=== PATIENT | male | born 1985 | race Caucasian/White ===

== ENCOUNTER 2016-06-18 08:23 | Emergency (ER) | payer SELFPAY ==
[~2016-06-18] VITALS: Ht 182.9 cm; Wt 133.5 kg
[~2016-06-18 08:23] MED LIST: ANUSOL HC,ANUCO25 MG PR; AURALGAN14.8 ML RIGHT EAR; CIPRO HC OTIC S10 ML RIGHT EAR; CITRATE OF MAG296 ML PO; CLEOCIN300 MG PO; COLACE100 MG PO; DICLOFENAC SODI75 MG PO; FLEXERIL10 MG PO; KRISTALOSE20 GM PO; LIDODERM 5% P1 PATCH TD; MEDROL DOSEPAK4 MG PO; MIRALAX255 GM PO; MOBIC7.5 MG PO; MOTRIN800 MG PO; NAPROSYN500 MG PO; NAPROXEN500 MG PO; NO HOME MEDS; NORCO 5/3251 TABLET PO; PEN-VEE K,VEET500 MG PO; PERCOCET 5/31 TABLET PO; STOOL SOFTENER250 MG PO; TRAMADOL HCL50 MG PO; TYLENOL EXTRA500 MG PO; ULTRACET1 TABLET PO; ULTRAM50 MG PO; VALIUM5 MG PO; VICODIN 5-3001 EACH PO; VICODIN,LORT1 TABLET PO
[2016-06-18] MEDS ORDERED: LORTAB 5-325 M1 EACH PO (09:58)
[2016-06-18] MEDS ORDERED: PREDNISONE10 MG PO (09:58)
[2016-06-18] MEDS ORDERED: BACLOFEN10 MG PO (09:58)
[2016-06-18 10:22] VITALS: BP 118/76
== END 2016-06-18 10:24 | disposition home or self-care (01) ==
LOC: EME 08:23
DX: M54.31 Sciatica, right side (principal); M54.5 Low back pain; G89.29 Other chronic pain; M53.3 Sacrococcygeal disorders, not elsewhere classified; S39.012A Strain of muscle, fascia and tendon of lower back, initial encounter; Z71.6 Tobacco abuse counseling
CPT/HCPCS: 99281; 99284; J7512

== ENCOUNTER 2016-08-06 08:12 | Emergency (ER) | payer SELFPAY ==
[~2016-08-06] VITALS: Ht 182.9 cm; Wt 134.0 kg
[~2016-08-06 08:12] MED LIST changes: +BACLOFEN10 MG PO; +LORTAB 5-325 M1 EACH PO; +PREDNISONE10 MG PO
[2016-08-06] MEDS ORDERED: PEN-VEE K,VEET500 MG PO (09:03)
[2016-08-06] MEDS ORDERED: NORCO 5/3251 TABLET PO (09:03)
[2016-08-06 09:11] VITALS: BP 123/80
== END 2016-08-06 09:12 | disposition home or self-care (01) ==
LOC: EME 08:12
DX: K02.9 Dental caries, unspecified (principal); F17.210 Nicotine dependence, cigarettes, uncomplicated
CPT/HCPCS: 99281; 99283; S0020

== ENCOUNTER 2016-08-13 09:26 | Emergency (ER) | payer SELFPAY ==
[~2016-08-13] VITALS: Ht 182.9 cm; Wt 134.9 kg
[2016-08-13] MEDS ORDERED: PEN-VEE K,VEET500 MG PO (11:16)
[2016-08-13] MEDS ORDERED: ULTRAM50 MG PO (11:16)
[2016-08-13] MEDS ORDERED: NAPROSYN500 MG PO (11:16)
[2016-08-13 11:32] VITALS: BP 108/54
== END 2016-08-13 11:35 | disposition home or self-care (01) ==
LOC: RME 09:26 → EME 09:26 → RME 11:35
DX: K02.9 Dental caries, unspecified (principal); R51 Headache; K08.89 Other specified disorders of teeth and supporting structures; F17.200 Nicotine dependence, unspecified, uncomplicated
CPT/HCPCS: 99281; 99284

== ENCOUNTER 2016-09-09 10:40 | Emergency (ER) | payer SELFPAY ==
[~2016-09-09] VITALS: Ht 182.9 cm; Wt 131.0 kg
[2016-09-09 11:27] VITALS: BP 124/60
[2016-09-09] MEDS ORDERED: PREDNISONE5 M1 PO (13:20)
[2016-09-09] MEDS ORDERED: INDOCIN50 MG PO (13:20)
[2016-09-09] MEDS ORDERED: NORCO 5/3251 TABLET PO (13:20)
[2016-09-09] MEDS ORDERED: FLEXERIL10 MG PO (13:20)
== END 2016-09-09 14:01 | disposition home or self-care (01) ==
LOC: EME 10:40 → RME 10:40
DX: M51.16 Intervertebral disc disorders with radiculopathy, lumbar region (principal); M54.5 Low back pain; F17.200 Nicotine dependence, unspecified, uncomplicated
CPT/HCPCS: 99281; 99283

== ENCOUNTER 2016-09-12 09:22 | Emergency (ER) | payer SELFPAY ==
[~2016-09-12] VITALS: Ht 182.9 cm; Wt 135.0 kg
[~2016-09-12 09:22] MED LIST changes: +INDOCIN50 MG PO; +PREDNISONE5 M1 PO
[2016-09-12] MEDS ORDERED: PEN-VEE K,VEET500 MG PO (10:53)
[2016-09-12] MEDS ORDERED: LIDOCAINE20 MG/1 M5 PO (10:53)
[2016-09-12 11:08] VITALS: BP 126/90
== END 2016-09-12 11:09 | disposition home or self-care (01) ==
LOC: EME 09:22
DX: K02.9 Dental caries, unspecified (principal); F17.210 Nicotine dependence, cigarettes, uncomplicated
CPT/HCPCS: 99281; 99283

== ENCOUNTER 2017-01-30 14:05 | Emergency (ER) | payer SELFPAY ==
[~2017-01-30] VITALS: Ht 182.9 cm; Wt 129.8 kg
[~2017-01-30 14:05] MED LIST changes: +LIDOCAINE20 MG/1 M5 PO
[2017-01-30 15:22] LABS: HEMATOCRIT 50.5 % (38.0-50.0); MCH 28.8 PG (29.0-34.0); MCHC 33.3 G/DL (30.0-36.0); MCV 86.6 FL (86-99); MEAN PLAT.VOLUME 11.5 uM^3 (9.0-12.4); PLATELET COUNT 207 K/uL (156-360); RBC DIS.WIDTH-CV 13.2 % (11.8-14.6); RBC DIS.WIDTH-SD 42.1 % (39-53); RED BLOOD COUNT 5.83 M/uL (4.00-5.50); WHITE BLOOD COUNT 12.3 K/uL (4.1-10.2)
[2017-01-30 15:32] LABS: CHLORIDE 109 mEq/L (99-109); POTASSIUM 4.1 mEq/L (3.7-5.4); SODIUM 142 mEq/L (136-147)
[2017-01-30 15:33] LABS: GLUCOSE 102 mg/dL (70-99)
[2017-01-30 15:35] LABS: ANION GAP 11 MEQ/L (2-14)
[2017-01-30 15:37] LABS: GFR ESTIMATE (CALCULATED) > 59 mL/min/
[2017-01-30 15:38] LABS: UREA NITROGEN (BUN) 13 mg/dL (9-23)
[2017-01-30 16:07] LABS: ADD MIUA? YES; BILIRUBIN NEGATIVE; BLOOD LARGE; COLOR YELLOW ((YELLOW)); GLUCOSE (STRIP) NEGATIVE; KETONES NEGATIVE; LEUKOCYTES NEGATIVE; NITRITE NEGATIVE; PROTEIN (STRIP) NEGATIVE; SPECIFIC GRAVITY 1.026 (1.000-1.030); UROBILINOGEN 0.2 MG/DL (0.2-1.0)
[2017-01-30 16:13] LABS: BACTERIA NONE SEEN /HPF; EPITHELIAL CELLS RARE /HPF; MUCUS 1+ /LPF; RED BLOOD CELLS TNTC /HPF (0-5); UCUL ADDED? YES; WHITE BLOOD CELLS 0-5 /HPF (0-5)
[2017-01-30] MEDS ORDERED: MOTRIN600 MG PO (18:48)
[2017-01-30] MEDS ORDERED: ZOFRAN4 MG PO (18:48)
[2017-01-30 19:25] VITALS: BP 129/66
== END 2017-01-30 19:26 | disposition home or self-care (01) ==
LOC: EME 14:05
DX: R10.31 Right lower quadrant pain (principal); R31.29 Other microscopic hematuria; Z87.442 Personal history of urinary calculi; F17.200 Nicotine dependence, unspecified, uncomplicated
CPT/HCPCS: 74176; 80048; 81003; 85027; 87086; 99281; 99283

== ENCOUNTER 2017-02-24 16:43 | Emergency (ER) | payer SELFPAY ==
[~2017-02-24] VITALS: Ht 182.9 cm; Wt 130.9 kg
[~2017-02-24 16:43] MED LIST changes: +MOTRIN600 MG PO; +ZOFRAN4 MG PO
[2017-02-24] MEDS ORDERED: AUGMENTIN875 MG PO (20:21)
[2017-02-24] MEDS ORDERED: LIDOCAINE20 MG/1 M5 PO (20:21)
[2017-02-24] MEDS ORDERED: MOTRIN800 MG PO (20:21)
[2017-02-24 20:38] VITALS: BP 122/78
== END 2017-02-24 20:40 | disposition home or self-care (01) ==
LOC: EME 16:43
DX: K02.9 Dental caries, unspecified (principal); K04.7 Periapical abscess without sinus
CPT/HCPCS: 99281; 99284

== ENCOUNTER 2017-04-03 13:12 | Emergency (ER) | payer SELFPAY ==
[~2017-04-03] VITALS: Ht 182.9 cm; Wt 134.0 kg
[~2017-04-03 13:12] MED LIST changes: +AUGMENTIN875 MG PO
[2017-04-03 13:15] VITALS: BP 105/72
[2017-04-03] MEDS ORDERED: ULTRAM50 MG PO (13:48)
[2017-04-03] MEDS ORDERED: NAPROSYN500 MG PO (13:49)
== END 2017-04-03 14:13 | disposition home or self-care (01) ==
LOC: EME 13:12
DX: K04.7 Periapical abscess without sinus (principal); K02.9 Dental caries, unspecified; R06.2 Wheezing; S02.5XXA Fracture of tooth (traumatic), initial encounter for closed fracture; F17.200 Nicotine dependence, unspecified, uncomplicated
CPT/HCPCS: 99281; 99284; J3010

== ENCOUNTER 2017-04-24 14:26 | Emergency (ER) | payer SELFPAY ==
[~2017-04-24] VITALS: Ht 182.9 cm; Wt 125.9 kg
[2017-04-24 15:05] VITALS: BP 131/77
[2017-04-24] MEDS ORDERED: NORCO 5/3251 TABLET PO (17:03)
[2017-04-24] MEDS ORDERED: PREDNISONE50 MG PO (17:03)
[2017-04-24] MEDS ORDERED: FLEXERIL5 MG PO (17:03)
== END 2017-04-24 17:15 | disposition home or self-care (01) ==
LOC: EME 14:26
DX: M54.5 Low back pain (principal); F17.200 Nicotine dependence, unspecified, uncomplicated

== ENCOUNTER 2017-05-11 21:47 | Emergency (ER) | payer SELFPAY ==
[~2017-05-11] VITALS: Ht 182.9 cm; Wt 137.8 kg
[~2017-05-11 21:47] MED LIST changes: +FLEXERIL5 MG PO; +PREDNISONE50 MG PO
[2017-05-11] MEDS ORDERED: NORCO 5/3251 TABLET PO (23:18)
[2017-05-11] MEDS ORDERED: NAPROSYN500 MG PO (23:18)
[2017-05-11 23:59] VITALS: BP 136/73
== END 2017-05-11 23:59 | disposition home or self-care (01) ==
LOC: EME 21:47
DX: S93.501A Unspecified sprain of right great toe, initial encounter (principal); W18.40XA Slipping, tripping and stumbling without falling, unspecified, initial encounter; Y93.89 Activity, other specified
CPT/HCPCS: 73610; 73630; 99281; 99284

== ENCOUNTER 2017-05-16 03:22 | Emergency (ER) | payer SELFPAY ==
[~2017-05-16] VITALS: Ht 182.9 cm; Wt 137.7 kg
[2017-05-16] MEDS ORDERED: NORCO 5/3251 TABLET PO (04:57)
[2017-05-16 05:20] VITALS: BP 123/71
== END 2017-05-16 05:43 | disposition home or self-care (01) ==
LOC: EME 03:22
DX: M79.674 Pain in right toe(s) (principal); S93.50 Unspecified sprain of toe; X58.XXXD Exposure to other specified factors, subsequent encounter
CPT/HCPCS: 99281; 99283

== ENCOUNTER 2017-05-18 17:54 | Emergency (ER) | payer SELFPAY ==
[~2017-05-18] VITALS: Ht 182.9 cm; Wt 137.4 kg
[2017-05-18] MEDS ORDERED: NAPROXEN500 MG PO (21:01)
[2017-05-18] MEDS ORDERED: ULTRACET1 TABLET PO (21:01)
[2017-05-18 21:09] VITALS: BP 144/85
== END 2017-05-18 21:10 | disposition home or self-care (01) ==
LOC: EME 17:54
DX: S90.31XA Contusion of right foot, initial encounter (principal); W18.40XA Slipping, tripping and stumbling without falling, unspecified, initial encounter; F17.200 Nicotine dependence, unspecified, uncomplicated
CPT/HCPCS: 99281; 99283

== ENCOUNTER 2017-06-18 08:51 | Emergency (ER) | payer SELFPAY ==
[~2017-06-18] VITALS: Ht 182.9 cm; Wt 139.8 kg
[2017-06-18 09:01] VITALS: BP 133/82
[2017-06-18 09:26] LABS: HEMATOCRIT 48.7 % (38.0-50.0); HEMOGLOBIN 16.3 G/DL (12.5-16.6); MCHC 33.5 G/DL (30.0-36.0); MCV 86.5 FL (86-99); PLATELET COUNT 182 K/uL (156-360); RBC DIS.WIDTH-SD 40.5 % (39-53); RED BLOOD COUNT 5.63 M/uL (4.00-5.50)
[2017-06-18 09:34] LABS: ALBUMIN 4.2 g/dL (3.2-4.8); CHLORIDE 106 mEq/L (99-109); POTASSIUM 4.3 mEq/L (3.7-5.4); SODIUM 140 mEq/L (136-147)
[2017-06-18 09:37] LABS: GLUCOSE 101 mg/dL (70-99); TOTAL PROTEIN 7.9 g/dL (6.4-8.3)
[2017-06-18 09:39] LABS: TOTAL BILIRUBIN 0.5 mg/dL (0.0-1.0)
[2017-06-18 09:40] LABS: ALKALINE PHOSPHATASE 69 IU/L (3-129); CREATININE 0.9 mg/dL (0.6-1.3); GFR ESTIMATE (CALCULATED) > 59 mL/min/ (58.99-99999)
[2017-06-18 09:41] LABS: UREA NITROGEN (BUN) 18 mg/dL (9-23)
[2017-06-18 09:42] LABS: AST (GOT) 20 IU/L (2-34)
[2017-06-18 09:43] LABS: ALT (GPT) 33 IU/L (3-49)
== END 2017-06-18 11:30 | disposition left against medical advice (07) ==
LOC: EME 08:51
DX: K59.00 Constipation, unspecified (principal); Z53.21 Procedure and treatment not carried out due to patient leaving prior to being seen by health care provider
CPT/HCPCS: 80053; 81003; 85027; 99281

== ENCOUNTER → 2017-06-23 15:48 | Emergency (ER) | payer SELFPAY ==
[~2017-06-23] VITALS: Ht 182.9 cm; Wt 137.7 kg
[2017-06-23 16:24] VITALS: BP 112/78
== END | disposition left against medical advice (07) ==
LOC: EME 15:48
DX: K59.00 Constipation, unspecified (principal); Z53.21 Procedure and treatment not carried out due to patient leaving prior to being seen by health care provider

== ENCOUNTER 2017-06-26 23:58 | Emergency (ER) | payer SELFPAY ==
[~2017-06-26] VITALS: Ht 182.9 cm; Wt 137.8 kg
[2017-06-27 04:51] LABS: APPEARANCE SL.HAZY ((CLEAR)); BILIRUBIN SMALL; BLOOD NEGATIVE; COLOR AMBER ((YELLOW)); GLUCOSE (STRIP) NEGATIVE; KETONES NEGATIVE; LEUKOCYTES NEGATIVE; NITRITE NEGATIVE; PROTEIN (STRIP) 30; SPECIFIC GRAVITY 1.038 (1.000-1.030)
[2017-06-27 05:18] LABS: HEMATOCRIT 40.9 % (38.0-50.0); HEMOGLOBIN 14.2 G/DL (12.5-16.6); MCHC 34.7 G/DL (30.0-36.0); MCV 86.3 FL (86-99); PLATELET COUNT 172 K/uL (156-360); RBC DIS.WIDTH-CV 13.1 % (11.8-14.6); RBC DIS.WIDTH-SD 40.9 % (39-53); RED BLOOD COUNT 4.74 M/uL (4.00-5.50); WHITE BLOOD COUNT 12.4 K/uL (4.1-10.2)
[2017-06-27 05:25] LABS: CHLORIDE 107 mEq/L (99-109); POTASSIUM 3.6 mEq/L (3.7-5.4); SODIUM 137 mEq/L (136-147)
[2017-06-27 05:27] LABS: GLUCOSE 117 mg/dL (70-99)
[2017-06-27 05:31] LABS: CREATININE 0.9 mg/dL (0.6-1.3); GFR ESTIMATE (CALCULATED) > 59 mL/min/ (58.99-99999)
[2017-06-27 05:31] LABS: BACTERIA RARE /HPF; EPITHELIAL CELLS RARE /HPF; MUCUS 3+ /LPF; RED BLOOD CELLS NONE SEEN /HPF (0-5); UCUL ADDED? NO; WHITE BLOOD CELLS 0-5 /HPF (0-5)
[2017-06-27 05:32] LABS: UREA NITROGEN (BUN) 15 mg/dL (9-23)
[2017-06-27] MEDS ORDERED: MIRALAX119 GM PO (05:42)
[2017-06-27] MEDS ORDERED: FLEET ENEMA-AD118 ML PR (05:42)
[2017-06-27 06:02] VITALS: BP 118/73
== END 2017-06-27 06:03 | disposition home or self-care (01) ==
LOC: EME 23:58
PROVIDERS: Emergency Medicine
DX: R10.9 Unspecified abdominal pain (principal); K59.00 Constipation, unspecified; F17.200 Nicotine dependence, unspecified, uncomplicated
CPT/HCPCS: 74176; 80048; 81003; 85027; 99281; 99285

== ENCOUNTER 2017-08-11 17:27 | Emergency (ER) | payer SELFPAY ==
[~2017-08-11] VITALS: Ht 182.9 cm; Wt 136.5 kg
[~2017-08-11 17:27] MED LIST changes: +FLEET ENEMA-AD118 ML PR; +MIRALAX119 GM PO
[2017-08-11] MEDS ORDERED: NORCO 5/3251 TABLET PO (18:15)
[2017-08-11] MEDS ORDERED: PEN-VEE K,VEET500 MG PO (18:15)
[2017-08-11 18:22] VITALS: BP 122/81
== END 2017-08-11 18:22 | disposition home or self-care (01) ==
LOC: EME 17:27
DX: K02.9 Dental caries, unspecified (principal); K08.89 Other specified disorders of teeth and supporting structures; F17.200 Nicotine dependence, unspecified, uncomplicated
CPT/HCPCS: 99281; 99282

== ENCOUNTER 2017-08-26 08:29 | Emergency (ER) | payer SELFPAY ==
[~2017-08-26] VITALS: Ht 182.9 cm; Wt 135.6 kg
[2017-08-26 09:25] LABS: BASOPHIL (%) 0.6 % (0-1); BASOPHIL COUNT 0.1 K/uL (0-0.1); EOSINOPHIL (%) 2.6 % (0-5); EOSINOPHIL COUNT 0.2 K/uL (0-0.3); HEMATOCRIT 46.4 % (38.0-50.0); HEMOGLOBIN 15.5 G/DL (12.5-16.6); IMMATURE GRANULOCYTE (%) 0.1 % (0.0-0.7); LYMPHOCYTE (%) 25.9 % (15-42); LYMPHOCYTE COUNT 2.1 K/uL (1.0-2.8); MCH 29.3 PG (29.0-34.0); MCHC 33.4 G/DL (30.0-36.0); MCV 87.7 FL (86-99); MONOCYTE COUNT 0.6 K/uL (0-0.8); NEUTROPHIL (%) 63.8 % (45-76); NEUTROPHIL COUNT 5.1 K/uL (1.8-6.4); PLATELET COUNT 145 K/uL (156-360); RBC DIS.WIDTH-CV 12.9 % (11.8-14.6); RBC DIS.WIDTH-SD 41.4 % (39-53); RED BLOOD COUNT 5.29 M/uL (4.00-5.50)
[2017-08-26 09:34] LABS: CHLORIDE 107 mEq/L (99-109); POTASSIUM 4.4 mEq/L (3.7-5.4); SODIUM 139 mEq/L (136-147)
[2017-08-26 09:36] LABS: GLUCOSE 98 mg/dL (70-99)
[2017-08-26 09:40] LABS: CREATININE 0.9 mg/dL (0.6-1.3); GFR ESTIMATE (CALCULATED) > 59 mL/min/ (58.99-99999)
[2017-08-26 09:41] LABS: UREA NITROGEN (BUN) 14 mg/dL (9-23)
[2017-08-26 10:21] LABS: APPEARANCE SL.HAZY ((CLEAR)); BILIRUBIN NEGATIVE; BLOOD LARGE; COLOR YELLOW ((YELLOW)); GLUCOSE (STRIP) NEGATIVE; KETONES NEGATIVE; LEUKOCYTES NEGATIVE; NITRITE NEGATIVE; PROTEIN (STRIP) 100; SPECIFIC GRAVITY 1.027 (1.000-1.030); UROBILINOGEN 0.2 MG/DL (0.2-1.0)
[2017-08-26 11:20] LABS: EPITHELIAL CELLS RARE /HPF; RED BLOOD CELLS RARE /HPF (0-5); WHITE BLOOD CELLS NONE SEEN /HPF (0-5)
[2017-08-26 11:21] LABS: BACTERIA NONE SEEN /HPF; MUCUS NONE SEEN /LPF
[2017-08-26] MEDS ORDERED: TYLENOL WITH C1 EACH PO (11:45)
[2017-08-26 12:08] VITALS: BP 111/57
== END 2017-08-26 12:10 | disposition home or self-care (01) ==
LOC: EME 08:29
PROVIDERS: Emergency Medicine
DX: R10.30 Lower abdominal pain, unspecified (principal); R31.9 Hematuria, unspecified; K76.0 Fatty (change of) liver, not elsewhere classified; Z87.442 Personal history of urinary calculi; F17.200 Nicotine dependence, unspecified, uncomplicated
CPT/HCPCS: 74176; 80048; 81003; 85025; 99281; 99284; J2270; J2405; J7030

== ENCOUNTER 2017-11-24 09:14 | Emergency (ER) | payer SELFPAY ==
[~2017-11-24] VITALS: Ht 182.9 cm; Wt 132.2 kg
[~2017-11-24 09:14] MED LIST changes: +TYLENOL WITH C1 EACH PO
[2017-11-24] MEDS ORDERED: NORCO 10/3251 TABLET PO (10:02)
[2017-11-24] MEDS ORDERED: AMOXICILLIN500 MG PO (10:02)
[2017-11-24] MEDS ORDERED: XYLOCAINE VISC100 ML PO (10:02)
[2017-11-24 10:18] VITALS: BP 120/70
== END 2017-11-24 13:07 | disposition home or self-care (01) ==
LOC: EME 09:14
DX: K02.9 Dental caries, unspecified (principal); K05.10 Chronic gingivitis, plaque induced; F17.200 Nicotine dependence, unspecified, uncomplicated
CPT/HCPCS: 99281; 99283